=== PATIENT | male | born 1980 | race Two or more races ===

== ENCOUNTER 2019-08-02 17:34 | Emergency (ER) | payer MEDICAID ==
[~2019-08-02] VITALS: Ht 193 cm; Wt 123.0 kg
[2019-08-02 20:26] VITALS: BP 130/88
== END 2019-08-02 21:21 | disposition left against medical advice (07) ==
LOC: ER 17:34
DX: M54.5 Low back pain (principal); R07.89 Other chest pain; G40.909 Epilepsy, unspecified, not intractable, without status epilepticus; I10 Essential (primary) hypertension; F10.21 Alcohol dependence, in remission; V43.52XA Car driver injured in collision with other type car in traffic accident, initial encounter; W22.11XA Striking against or struck by driver side automobile airbag, initial encounter; Y93.89 Activity, other specified; Y92.488 Other paved roadways as the place of occurrence of the external cause
CPT/HCPCS: 71250; 74176; 93005; 99284